=== PATIENT | male | born 2005 | race African-American/Black ===

== ENCOUNTER 2024-09-22 19:08 | Emergency (ER) | payer OTHER, SELFPAY ==
[2024-09-22 19:09] VITALS: BP 134/69; PULSE 71; RESP 18; TEMP 36.3; O2SAT 99; BMI 18.9
--- NOTE | 2024-09-22 19:33 | EX.ED.DYSGE1 ---
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 Someone he knows was eating shrimp he took a drink out of that glass that they were drinking out of and believes he might be having a reaction. Complains some itching and a change in his voice. No trouble swallowing or breathing. No wheezing. No swelling of his lips or tongue. No rash. Prior similar symptoms: No Recent Illness/Hospitalization: No PFSH PFSH Medical History no medical history no medical history Allergy/AdvReac Type Severity Reaction Status Date / Time shrimp Allergy Unknown PT UNSURE Verified 09/22/24 19:09 OF REACTION ROS ROS ED ROS Narrative Denies recent illness. Constitutional Constitutional ED: Denies chills or fever(s) Eyes Eyes: Denies blurry vision ENT ENT ED: Denies ear pain Cardiovascular Cardiovascular: Denies chest pain Respiratory/Chest Respiratory/Chest: Denies cough or dyspnea Gastrointestinal Gastrointestinal: Denies abdominal pain Genitourinary Genitourinary ED: Denies dysuria or hematuria Musculoskeletal Musculoskeletal: Denies arthralgias Integumentary Denies abscess or rash Neurologic Neurologic: Denies headache(s) Psychiatric Psychiatric: Denies anxiety Endocrine Endocrinology: Denies cold intolerance Hematologic/Lymphatic Hematologic/Lymphatic: Reports none Allergic/Immunologic Allergic/Immunologic ED: Denies mouth swelling, tongue swelling or urticaria EXAM Physical Exam Narrative Exam Narrative: Well-appearing 18-year-old vital signs are stable afebrile. No distress. Pulse ox 99% on room air no hypoxia. H EENT exam normal. No swelling or rash on his face. No swelling of his lips or tongue. No trouble swallowing or breathing. No stridor or drooling. Neck nontender no lymphadenopathy. Lungs clear to auscultation bilaterally. No wheezing heart regular rhythm rate about 70 no murmur. Chest wall nontender. Abdomen soft nontender. Moving all 4 extremities. Nontender no edema. Skin no rashes. No hives. Back nontender. Neurologically is awake and alert no focal motor deficits. Const Vital Signs: 09/22/24 19:09 Temperature 97.4 F L Temperature Source Temporal Pulse Rate 71 Respiratory Rate 18 Blood Pressure 134/69 H Blood Pressure Mean 90 Pulse Ox 99 Oxygen Delivery Method Room Air Positive well nourished and well developed; Negative for obese, cachectic, contractures or unkempt General Appearance ED: well developed and NAD; Negative for unkempt, cachectic, contractures, cyanotic, diaphoretic or pallor Nutritional Appearance: Negative for cachectic or obese HEENT Reports moist mucous membranes Negative for trauma or tenderness Eyes PERRL and EOMs intact bilaterally General Eye ED: Negative for pale conjunctiva or scleral icterus Neck no lymphadenopathy, supple and no JVD General: Negative for tenderness Lymph Lymphatic: Negative for other Chest Wall inspection of chest normal and palpation of chest normal Resp normal respiratory effort and clear to auscultation bilaterally Auscultation: Negative for rales, rhonchi or wheezes Cardio regular rate, regular rhythm, S1 normal heart sound, S2 normal heart sound and no murmurs Rate: Negative for bradycardia or tachycardic GI normal to inspection, nondistended, normoactive bowel sounds, non-tender, non-distended and no masses Auscultation: normoactive bowel sounds Palpation: soft; Negative for tender or guarding Back/Spine no CVA tenderness General Back: Negative for CVA tenderness Cervical Spine: Negative for cervical spine tenderness Thoracic Spine / Upper Back: Negative for thoracic spinal tenderness or paraspinal muscle tenderness Lumbar Spine / Lower Back: Negative for lumbar spinal tenderness Extremity normal to inspection General Extremety ED: Negative for edema or tenderness General Extremity: Negative for edema Neuro oriented x3 and CN's II-XII intact bilaterally Sensorium / Orientation: alert; Negative for orientation impaired, lethargic or stuporous Motor Exam: strength 5/5 throughout Psych mental status grossly normal Appearance: Negative for unkempt Attitude: No agitated Mood & Affect: Negative for depressed, anxious or tearful Skin no rashes or lesions noted, no wounds and skin turgor normal General Skin Exam: elasticity normal; Negative for jaundice or pallor Lesions: No lesion noted Rashes: No rashes noted Trauma: Negative for abrasion Wounds: Negative for wounds noted MDM MDM MDM Narrative Medical decision making narrative: 18-year-old male possible allergic reaction. Treated with oral prednisone and observed that he is doing well be discharged home. He does not need IV meds. He does not need labs or testing. He does not need epinephrine at this time. Repeat exam patient is doing well at 8:13 PM. He is already been treated with prednisone. To be discharged to home. Knows return if worse. Benadryl as needed. History & Record Review Discussion w/independent historian: Patient Discharge Plan Triage Chief Complaint: Allergic Reaction ED Provider: Marco Toscano Dx/Rx/DC Orders Clinical Impression: Allergic reaction Instructions: ED General Allergic Reactions Primary Care Provider: Mona Rodriguez,Out of Referrals: Mona Rodriguez,Out of [Primary Care Provider] - Activity Restrictions/Additional Instructions: If you start having worse itching or swelling use Benadryl. If you are getting worse return to the emergency department. This should progressively get better. Print Language: [place] Disposition Disposition: Home, Self Care
[2024-09-22] MEDS: predniSONE 20 MG Tablet 40 MG PO (19:55)
== END 2024-09-22 20:18 | disposition home or self-care (01) ==
PROVIDERS: Emergency Provider Emergency Medicine; Visit Provider Emergency Medicine
DX: T78.40XA Allergy, unspecified, initial encounter (principal)
CPT/HCPCS: 99282